=== PATIENT | female | born 1965 | race Caucasian/White ===

== ENCOUNTER 2016-05-13 14:49 | Emergency (ER) | payer BC, OTHER ==
[~2016-05-13] VITALS: Ht 167.6 cm; Wt 87.0 kg
[~2016-05-13 14:49] MED LIST: ALBUAER2 INH; CHOL1CAP30; CRDCD/180 PO; EPP3/2 IM; FLNIN NAE
[2016-05-13 15:08] VITALS: TEMP 36.4; Ht 167.6 cm; Wt 87.0 kg
[2016-05-13] MEDS ORDERED: PRVHFAIN INH (15:40)
[2016-05-13] MEDS ORDERED: CLR10 PO (15:41)
[2016-05-13] MEDS ORDERED: CHOLCAP5 PO (15:41)
[2016-05-13] MEDS ORDERED: PRLSR20 PO (15:41)
--- NOTE | 2016-05-13 16:11 | DIAGNOSTIC IMAGING REPORT ---
ULTRASOUND RIGHT LOWER EXTREMITY VENOUS CLINICAL HISTORY: Right leg pain. COMPARISON STUDY: No priors. TECHNIQUE: Real-time, grayscale, and color Doppler sonography of the deep veins of the right lower extremity was performed from the inguinal crease to the calf. Compression and augmentation were utilized. FINDINGS: There is no sonographic evidence of deep venous thrombosis identified in the right lower extremity. The common femoral, superficial femoral, and popliteal veins are patent and normally compressible. The greater saphenous vein and the profunda femoris vein at the junction with the common femoral vein are clear. The visualized calf veins are patent. IMPRESSION: There is no sonographic evidence of deep venous thrombosis identified in the right lower extremity. Electronically signed by: William Leahy M.D. 05/13/2016 4:10 PM Dictated Date/Time: 05/13/2016 4:09 PM
--- NOTE | 2016-05-13 16:39 | EMERGENCY ROOM VISIT NOTE ---
History First contact with patient: 15:15 Chief Complaint: LEG PAIN,LEG INJURY Stated Complaint: RIGHT LEG PAIN History of Present Illness The patient is a 50 year old female who presents to the Emergency Room with complaints of persistent right posterior leg and thigh pain. The patient reports that she slipped and fell at work on Tuesday. She reports landing on all fours. The patient reports a prior history of right knee surgery by Dr. Renteria. She is also had back surgery in [address] Valencia. She has not noticed any worsening back pain since her fall. She denies any paresthesias or numbness of the right lower extremity. She has no swelling of the right lower extremity. She rates her discomfort a 5 out of 10. Review of Systems 10 system review was performed and was negative except for pertinent positives and negatives as indicated in history of present illness Past Medical/Surgical History Medical Problems: (1) Asthma (2) Diab [place] Compl, Type I [Juvenile Type], Not Uncntrld (3) Hypertension Nos (4) Pheochromocytoma (5) Vitamin D Deficiency, Unspecified Surgical Problems: (1) History of cervical spinal surgery (2) History of lumbar surgery (3) History of right knee surgery Family History FH: cancer FH: diabetes mellitus FH: gallbladder disease FH: heart disease FH: hypertension Social History Smoking Status: Never Smoker Alcohol Use: occasionally Marital Status: Occupation Status: employed Current/Historical Medications Scheduled Cholecalciferol (Vitamin D3), 5,000 INTER.UNIT PO DAILY Diltiazem Hcl Coated Beads (Cardizem Cd), 180 MG PO DAILY Omeprazole (Prilosec), 20 MG PO DAILY Scheduled PRN Albuterol (Ventolin Hfa), 2 PUFFS INH UD PRN for SOB/Wheezing Loratadine (Claritin), 10 MG PO DAILY PRN for Allergy Symptoms Allergies Coded Allergies: Amoxicillin (Verified Allergy, Intermediate, Rash, 05/13/16) Benzocaine (Verified Allergy, Intermediate, HIVES, 03/09/12) Benzoin (Verified Allergy, Intermediate, Tape blisters, 05/13/16) Cat Dander (Verified Allergy, Intermediate, Wheeze, itching, eyes water, ) Diclofenac (Verified Allergy, Intermediate, HIVES, 03/09/12) Gadolinium (Verified Allergy, Intermediate, HIVES, 03/09/12) Iodinated Contrast Media (Verified Allergy, Intermediate, HIVES, 03/09/12) Methyl Salicylate (Verified Allergy, Intermediate, Tape blisters, 05/13/16) Penicillins (Verified Allergy, Intermediate, Rash with Amoxicillin, ) Shellfish (Verified Allergy, Intermediate, HIVES;ITCHY, 03/20/12) POLLEN (Verified Allergy, Mild, Seasonal allergies, 11/28/12) Terazosin (Verified Adverse Reaction, Mild, Tachycardia, 11/28/12) Physical Exam Vital Signs Date Time Temp Pulse Resp B/P Pulse Ox O2 Delivery O2 Flow Rate FiO2 05/13/16 15:08 36.4 71 20 165/78 98 Room Air Physical Exam CONSTITUTIONAL: Healthy and well nourished. Alert and oriented X 3 with positive affect. Patient does not appear in any acute distress. HEENT: Normocephalic, atraumatic. Pupils equal, round and reactive. NECK: Full active range of motion without discomfort. MUSCULOSKELETAL: Examination of the right lower extremity does not show any obvious edema, ecchymosis or erythema. The patient has mild tenderness to palpation through the biceps and gastrocnemius. She also has generalized tenderness about the knee. No joint effusion noted. Has mild discomfort with flexion and extension. Collateral ligaments are intact. Pedal pulses are intact. Negative logroll. No tenderness to palpation through the lower lumbar spine or SI joints. INTEGUMENTARY: No rash or other significant dermatologic conditions noted. NEUROLOGIC: Right foot and toes are sensory intact. Medical Decision & Procedures ER Provider Diagnostic Interpretation: I did review x-rays of the knee that the patient brought with her from the [facility] urgent care center. No fractures or dislocations noted. Venous ultrasound was ordered in the emergency Department, showing no evidence for deep vein thrombosis. Radiologist report is as follows: ULTRASOUND RIGHT LOWER EXTREMITY VENOUS CLINICAL HISTORY: Right leg pain. COMPARISON STUDY: No priors. TECHNIQUE: Real-time, grayscale, and color Doppler sonography of the deep veins of the right lower extremity was performed from the inguinal crease to the calf. Compression and augmentation were utilized. FINDINGS: There is no sonographic evidence of deep venous thrombosis identified in the right lower extremity. The common femoral, superficial femoral, and popliteal veins are patent and normally compressible. The greater saphenous vein and the profunda femoris vein at the junction with the common femoral vein are clear. The visualized calf veins are patent. IMPRESSION: There is no sonographic evidence of deep venous thrombosis identified in the right lower extremity. ED Course Patient history and physical exam were performed. Nurse's notes were reviewed. Vital signs were reviewed and were normal. I reviewed x-rays that the patient brought with her from the [facility] urgent care center, showing no acute findings. Venous ultrasound of the right lower extremity was unremarkable. The patient was encouraged to intermittently apply ice to areas of discomfort. The patient also has a set of crutches at home. I did encourage her to use the crutches for the next few days to see if that helps with her symptoms. Ibuprofen and Tylenol in alternating fashion if needed for pain relief. The patient was instructed to follow-up with her Worker's Compensation approved orthopedic surgeon for further reevaluation and management. The patient was happy with plan of care, voiced understanding of all discharge instructions, and denied any significant discomfort at the time of discharge. Medical Decision Impression Primary Impression: Pain of right lower extremity Additional Impressions: Fall Work related injury Departure Information Referrals Lara Allen DO (PCP) Patient Instructions [facility] Problem Qualifiers Additional Impressions: Fall Encounter type: initial encounter Qualified Codes: W19.XXXA - Unspecified fall, initial encounter
[2016-05-13 16:40] VITALS: BP 147/88; PULSE 66; O2SAT 98
[2016-09-09] MEDS ORDERED: MISCCAP80 PO (11:45)
[2016-09-09] MEDS ORDERED: CHOL1TAB46 PO (11:45)
== END 2016-05-13 16:45 | disposition home or self-care (01) ==
LOC: C.EDB 14:50 → C.EDD 16:45
DX: M79.604 Pain in right leg (principal); W01.0XXA Fall on same level from slipping, tripping and stumbling without subsequent striking against object, initial encounter; Y99.0 Civilian activity done for income or pay; J45.909 Unspecified asthma, uncomplicated; E11.9 Type 2 diabetes mellitus without complications; I10 Essential (primary) hypertension; E55.9 Vitamin D deficiency, unspecified; Z83.3 Family history of diabetes mellitus; Z82.49 Family history of ischemic heart disease and other diseases of the circulatory system; Z79.899 Other long term (current) drug therapy

== ENCOUNTER → 2016-07-09 | Outpatient (CLI) | payer BC ==
[~2016-07-09] MED LIST changes: -ALBUAER2 INH; -CHOL1CAP30; +CHOL1TAB46 PO; +CHOLCAP5 PO; +CLR10 PO; -EPP3/2 IM; -FLNIN NAE; +MISCCAP80 PO; +PRLSR20 PO; +PRVHFAIN INH
--- NOTE | 2016-07-12 12:46 | MAMMOGRAPHY REPORT ---
BILATERAL DIGITAL SCREENING MAMMOGRAM TOMOSYNTHESIS WITH CAD: 07/09/2016 CLINICAL HISTORY: Routine screening. TECHNIQUE: Breast tomosynthesis in addition to standard 2D mammography was performed. Current study was also evaluated with a Computer Aided Detection (CAD) system. COMPARISON: Comparison is made to exams dated: 07/02/2015 mammogram, 06/27/2014 mammogram, 06/25/2013 mammogram, 06/22/2012 mammogram, 04/15/2011 mammogram, and 04/14/2010 mammogram - [facility]. BREAST COMPOSITION: There are scattered areas of fibroglandular density in both breasts. FINDINGS: No suspicious masses, calcifications, or areas of architectural distortion are noted in e ither breast. There has been no significant interval change compared to prior exams. IMPRESSION: ACR BI-RADS CATEGORY 1: NEGATIVE There is no mammographic evidence of malignancy. A 1 year screening mammogram is recommended. The p atient will receive written notification of the results. Approximately 10% of breast cancers are not detected with mammography. A negative mammographic repor t should not delay biopsy if a clinically suggestive mass is present. Laurence Miguel M.D. ah/:07/11/2016 12:00:52 Blanket Maker: Laurence PEÑA(R)(M), [facility] letter sent: Normal 1/2 BI-RADS Code: ACR BI-RADS Category 1: Negative
== END | disposition home or self-care (01) ==
LOC: C.MAMM 16:13
PROVIDERS: ATTEND Obstetrics & Gynecology
DX: Z12.31 Encounter for screening mammogram for malignant neoplasm of breast (principal)

== ENCOUNTER → 2016-08-09 | Outpatient (CLI) | payer BC | END | disposition home or self-care (01) | LOC: C.PAPS 11:21 | PROVIDERS: ATTEND Obstetrics & Gynecology | DX: Z01.419 Encounter for gynecological examination (general) (routine) without abnormal findings (principal) ==

== ENCOUNTER → 2016-09-21 | Day surgery (SDC) | payer BC, OTHER ==
[2016-09-09 11:45] VITALS: Ht 167.6 cm; Wt 85.0 kg
[~2016-09-21] VITALS: Ht 167.6 cm; Wt 85.0 kg
[~2016-09-21] MED LIST changes: +ATROPINE SULFATE 0.1 MG/ML 5ML SYR IV PRN; -CHOLCAP5 PO; +EpHEDrine SULFATE INJ 50 MG/ML AMP IV PRN; +FENTANYL CITRATE INJ 50 MCG/1 ML 2 ML VIAL ONE; +LIDOCAINE HCL 2% 2 ML VIAL (20MG/ML) ONE; +PROPOFOL IV EMULSION 10 MG/ML 20 ML VIAL IV ONE; +SODIUM CHLORIDE 0.9% 500ML 500 ML IV ONE
--- NOTE | 2016-09-21 09:31 | Endo History and Physical ---
History & Physical Date of Service: Sep 21, 2016. Chief Complaint: screening Referring Physician: Dr.Cara Allen History of Present Illness 50 yo CF who presents for screening colonoscopy. Past Surgical History Hx Cardiac Surgery: No Hx Internal Defibrillator: No Hx Pacemaker: No Hx Abdominal Surgery: Yes (BLADDER TUMOR REMOVAL (BENIGN), LYSIS OF ADHESIONS) Hx Post-Op Nausea and Vomiting: Yes Hx Cancer Surgery: No Hx Thoracic Surgery: No Hx Orthopedic: Yes (LAMINECTOMY, DISCECTOMY, RT KNEE SX, ACDF) Hx Urinary Tract Surgery: No Family History Polyp Social History Smoking Status: Never Smoker Hx Substance Use: No Hx Alcohol Use: Yes (RARELY) Allergies Coded Allergies: Amoxicillin (Verified Allergy, Intermediate, Rash, 09/09/16) Benzocaine (Verified Allergy, Intermediate, HIVES, 09/09/16) Benzoin (Verified Allergy, Intermediate, Tape blisters, 09/09/16) Cat Dander (Verified Allergy, Intermediate, Wheeze, itching, eyes water, ) Diclofenac (Verified Allergy, Intermediate, HIVES, 09/09/16) Gadolinium (Verified Allergy, Intermediate, HIVES, 09/09/16) Iodinated Contrast Media (Verified Allergy, Intermediate, HIVES, 09/09/16) Methyl Salicylate (Verified Allergy, Intermediate, Tape blisters, 09/09/16) Shellfish (Verified Allergy, Intermediate, HIVES;ITCHY, 09/09/16) POLLEN (Verified Allergy, Mild, Seasonal allergies, 09/09/16) Terazosin (Verified Adverse Reaction, Mild, Tachycardia, 09/09/16) Current Medications Reported Home Medications Medications Dose Route/Sig Max Daily Dose Days Date Category Probiotic (Probiotic Product) 1 Cap Cap 2 Cap PO QAM 09/09/16 Reported Vitamin D3 (Cholecalciferol) 5,000 Unit Tab 1 Tab PO QAM 09/09/16 Reported Prilosec (Omeprazole) 20 Mg Capcr 20 Mg PO QAM 05/13/16 Reported Claritin (Loratadine) 10 Mg Tab 10 Mg PO DAILY PRN 05/13/16 Reported Ventolin Hfa (Albuterol) 60 Puffs/5400 Mcg Aers 2 Puffs INH UD PRN 05/13/16 Reported Cardizem Cd (Diltiazem Hcl Coated Beads) 180 Mg Cap 180 Mg PO QAM 02/02/13 Reported Vital Signs Weight (Kilograms): 85 Height (Feet): 5 Height (Inches): 6 Date Time Temp Pulse Resp B/P (MAP) Pulse Ox O2 Delivery O2 Flow Rate FiO2 09/21/16 09:04 36.8 70 16 152/87 (108) 99 Room Air Physical Exam General Appearance: WD/WN, no apparent distress Respiratory/Chest: Auscultation: breath sounds normal Cardiovascular: Heart Auscultation: RRR Abdomen: Bowel Sounds: normal Inspection & Palpation: soft, non-distended, no tenderness, guarding & rebound Assessment and Plan Assessment: 50 yo CF who presents for screening colonoscopy. Plan: Proceed with colonoscopy.
--- NOTE | 2016-09-21 09:54 | Discharge Instructions ---
Endoscopy Patient Instructions Date / Procedure(s) Performed Sep 21, 2016. Colonoscopy Allergy Information Coded Allergies: Amoxicillin (Verified Allergy, Intermediate, Rash, 09/09/16) Benzocaine (Verified Allergy, Intermediate, HIVES, 09/09/16) Benzoin (Verified Allergy, Intermediate, Tape blisters, 09/09/16) Cat Dander (Verified Allergy, Intermediate, Wheeze, itching, eyes water, ) Diclofenac (Verified Allergy, Intermediate, HIVES, 09/09/16) Gadolinium (Verified Allergy, Intermediate, HIVES, 09/09/16) Iodinated Contrast Media (Verified Allergy, Intermediate, HIVES, 09/09/16) Methyl Salicylate (Verified Allergy, Intermediate, Tape blisters, 09/09/16) Shellfish (Verified Allergy, Intermediate, HIVES;ITCHY, 09/09/16) POLLEN (Verified Allergy, Mild, Seasonal allergies, 09/09/16) Terazosin (Verified Adverse Reaction, Mild, Tachycardia, 09/09/16) Discharge Date / Findings Sep 21, 2016. Internal hemorrhoids Medication Instructions OK to resume all medications today as prescribed Reported Home Medications Medications Dose Route/Sig Max Daily Dose Days Date Category Probiotic (Probiotic Product) 1 Cap Cap 2 Cap PO QAM 09/09/16 Reported Vitamin D3 (Cholecalciferol) 5,000 Unit Tab 1 Tab PO QAM 09/09/16 Reported Prilosec (Omeprazole) 20 Mg Capcr 20 Mg PO QAM 05/13/16 Reported Claritin (Loratadine) 10 Mg Tab 10 Mg PO DAILY PRN 05/13/16 Reported Ventolin Hfa (Albuterol) 60 Puffs/5400 Mcg Aers 2 Puffs INH UD PRN 05/13/16 Reported Cardizem Cd (Diltiazem Hcl Coated Beads) 180 Mg Cap 180 Mg PO QAM 02/02/13 Reported Provider Instructions Activity Restrictions - No exercising or heavy lifting for 24 hours. - Do not drink alcohol the day of the procedure. - Do not drive a car or operate machinery until the day after the procedure. - Do not make any important decisions or sign important papers in 24 hours after the procedure. Following Day: - Return to full activity which may include returning to work/school. Diet Start your diet with liquids and light foods (jello, soup, juice, toast). Then eat your usual diet if not nauseated. Treatment For Common After Affects For mild abdominal pain, bloating, or excessive gas: - Rest - Eat lightly - Lie on right side Follow-Up Information Follow-up with Dr.Cara Allen as scheduled Anesthesia Information What You Should Know You have had a procedure that required some medicine to reduce anxiety and discomfort. This treatment is called moderate sedation. After receiving the treatment, you may be sleepy, but you will be able to breathe on your own. The effects of the treatment may last for several hours. Follow these instructions along with Activity/Diet recommendations noted above: * Do NOT do anything where dizziness or clumsiness would be dangerous. * Rest quietly at home today, then you can be up and about tomorrow. * Have a responsible person stay with you the rest of today. * You may have had an I.V. today. If so, you may take the dressing off later today. Recommendations Call your doctor if: * Trouble breathing * Continuous vomiting for more than 24 hours * Temperature above 101 degrees * Severe abdominal pain or bloating * Pain not relieved by pain medicine ordered * There is increased drainage or redness from any incision * A large amount of rectal bleeding greater than 2-3 tablespoons. (If you had a polyp/s removed or have hemorrhoids, a small amount of blood - from the rectum is to be expected.) * You have any unanswered questions or concerns. IN THE EVENT OF A SERIOUS EMERGENCY, GO TO THE NEAREST EMERGENCY ROOM Your discharge instructions were prepared by provider Marino Castañeda. Patient Instructions Signature Page [place] Patient (or Guardian) Signature/Date: I have read and understand the instructions given to me by my caregivers. Caregiver/RN/Doctor Signature/Date: The above-named patient and/or guardian has received patient instructions on this date. + Original Patient Signature Page (only) stays with chart. Please make copy for patient.
--- NOTE | 2016-09-21 10:02 | GI REPORT ---
Procedure Date: 09/21/2016 9:01 AM Procedure: Colonoscopy Indications: Screening for colorectal malignant neoplasm Medicines: Monitored Anesthesia Care Complications: No immediate complications. Estimated Blood Loss: Estimated blood loss: none. Procedure: Pre-Anesthesia Assessment: - Prior to the procedure, a History and Physical was performed, and patient medications and allergies were reviewed. The patient's tolerance of previous anesthesia was also reviewed. The risks and benefits of the procedure and the sedation options and risks were discussed with the patient. All questions were answered, and informed consent was obtained. Prior Anticoagulants: The patient has taken no previous anticoagulant or antiplatelet agents. ASA Grade Assessment: II - A patient with mild systemic disease. After reviewing the risks and benefits, the patient was deemed in satisfactory condition to undergo the procedure. After I obtained informed consent, the scope was passed under direct vision. Throughout the procedure, the patient's blood pressure, pulse, and oxygen saturations were monitored continuously. The Scope was introduced through the anus and advanced to the terminal ileum. The colonoscopy was performed without difficulty. The patient tolerated the procedure well. The quality of the bowel preparation was good. The terminal ileum, ileocecal valve, appendiceal orifice, and rectum were photographed. Findings: Non-bleeding internal hemorrhoids were found during retroflexion. The hemorrhoids were small. The exam was otherwise without abnormality. Impression: - Non-bleeding internal hemorrhoids. - The examination was otherwise normal. - No specimens collected. Recommendation: - Resume previous diet. - Continue present medications. - Repeat colonoscopy in 10 years for surveillance. - Return to primary care physician as previously scheduled. Marino Castañeda DO 09/21/2016 10:01:57 AM This report has been signed electronically. Note Initiated On: 09/21/2016 9:01 AM I attest to the content of the Intraoperative Record and orders documented therein, exceptions below
--- NOTE | 2016-09-21 10:03 | Anesthesiology Progress Note ---
Anesthesia Post Op Note Date & Time Sep 21, 2016 at 10:03 Vital Signs Pain Intensity: 0 Vital Signs Past 12 Hours Date Time Temp Pulse Resp B/P (MAP) Pulse Ox O2 Delivery O2 Flow Rate FiO2 09/21/16 09:53 86 16 132/97 (109) 99 Room Air 09/21/16 09:04 36.8 70 16 152/87 (108) 99 Room Air Notes Mental Status: alert / awake / arousable, participated in evaluation Pt Amnestic to Procedure: Yes Nausea / Vomiting: adequately controlled Pain: adequately controlled Airway Patency, RR, SpO2: stable & adequate BP & HR: stable & adequate Hydration State: stable & adequate Anesthetic Complications: no major complications apparent
[2016-09-21 10:23] VITALS: BP 134/84; PULSE 71; O2SAT 99
== END | disposition home or self-care (01) ==
LOC: C.GI 08:47
PROVIDERS: ATTEND Internal Medicine
DX: Z12.11 Encounter for screening for malignant neoplasm of colon (principal); K64.8 Other hemorrhoids; J45.909 Unspecified asthma, uncomplicated; I10 Essential (primary) hypertension; E66.9 Obesity, unspecified; Z68.30 Body mass index [BMI] 30.0-30.9, adult; Z91.013 Allergy to seafood; Z88.1 Allergy status to other antibiotic agents; Z98.890 Other specified postprocedural states

== ENCOUNTER → 2017-07-14 | Outpatient (CLI) | payer BC ==
[~2017-07-14] MED LIST changes: -ATROPINE SULFATE 0.1 MG/ML 5ML SYR IV PRN; -EpHEDrine SULFATE INJ 50 MG/ML AMP IV PRN; -FENTANYL CITRATE INJ 50 MCG/1 ML 2 ML VIAL ONE; -LIDOCAINE HCL 2% 2 ML VIAL (20MG/ML) ONE; -PROPOFOL IV EMULSION 10 MG/ML 20 ML VIAL IV ONE; -SODIUM CHLORIDE 0.9% 500ML 500 ML IV ONE
--- NOTE | 2017-07-15 07:45 | MAMMOGRAPHY REPORT ---
BILATERAL DIGITAL SCREENING MAMMOGRAM TOMOSYNTHESIS WITH CAD: 07/14/2017 CLINICAL HISTORY: Routine screening. Patient has no complaints. TECHNIQUE: Breast tomosynthesis in addition to standard 2D mammography was performed. Current study was also evaluated with a Computer Aided Detection (CAD) system. COMPARISON: Comparison is made to exams dated: 07/09/2016 mammogram, 07/02/2015 mammogram, 06/27/2014 ma mmogram, 06/25/2013 mammogram, 04/15/2011 mammogram, and 06/22/2012 mammogram - [facility]ter. BREAST COMPOSITION: There are scattered areas of fibroglandular density in both breasts. FINDINGS: No suspicious masses, calcifications, or areas of architectural distortion are noted in ei ther breast. There has been no significant interval change compared to prior exams. IMPRESSION: ACR BI-RADS CATEGORY 1: NEGATIVE There is no mammographic evidence of malignancy. A 1 year screening mammogram is recommended. The pa tient will receive written notification of the results. Approximately 10% of breast cancers are not detected with mammography. A negative mammographic report should not delay biopsy if a clinically suggestive mass is present. Laurence Miguel M.D. ah/:07/14/2017 16:36:03 Medical Record Clerk: Pauline PEÑA(Brooks)(M), [facility] letter sent: Normal 1/2 BI-RADS Code: ACR BI-RADS Category 1: Negative
== END | disposition home or self-care (01) ==
LOC: C.MAMM 16:11
PROVIDERS: ATTEND Obstetrics & Gynecology
DX: Z12.31 Encounter for screening mammogram for malignant neoplasm of breast (principal)

== ENCOUNTER → 2017-08-10 | Outpatient (CLI) | payer BC | END | disposition home or self-care (01) | LOC: C.PAPS 18:15 | PROVIDERS: ATTEND Obstetrics & Gynecology | DX: Z01.419 Encounter for gynecological examination (general) (routine) without abnormal findings (principal) ==